=== PATIENT | female | born 1940 | race Caucasian/White ===

== ENCOUNTER → 2016-05-05 | Outpatient (CLI) | payer MEDICARE ==
[~2016-05-05] MED LIST: ASPIRIN CHEWABL81 MG PO; CALCIUM 600 MG1 EACH PO; GLUCOTROL5 MG PO; KLONOPIN TAB 00.5 MG PO; LEVEMIR100 UNIT/1 SQ; LISINOPRIL20 MG PO; METRONIDAZOLE500 MG PO; NEOMYCIN SULFA500 MG PO; NORCO 5-325 TA1 EACH PO
== END ==
LOC: CT 08:30
DX: C20 Malignant neoplasm of rectum (principal); K80.20 Calculus of gallbladder without cholecystitis without obstruction
CPT/HCPCS: 72197; 74160; A9577; J7050; Q9962

== ENCOUNTER → 2016-06-09 | Day surgery (SDC) | payer MEDICARE, OTHER | END | disposition home or self-care (01) | LOC: OR 07:30 | PROVIDERS: Surgery | PROC: 3E0H8GC Introduction of Other Therapeutic Substance into Lower GI, Via Natural or Artificial Opening Endoscopic (ICD-10-PCS; principal; 2016-06-09 07:30) | DX: C20 Malignant neoplasm of rectum (principal); E11.9 Type 2 diabetes mellitus without complications; I10 Essential (primary) hypertension; E78.00 Pure hypercholesterolemia, unspecified; Z90.710 Acquired absence of both cervix and uterus; Z88.0 Allergy status to penicillin; Z79.82 Long term (current) use of aspirin; Z79.899 Other long term (current) drug therapy | CPT/HCPCS: 82962; J7030 ==

== ENCOUNTER 2016-06-10 07:37 | Inpatient (IN) | payer MEDICARE ==
[~2016-06-10] VITALS: Ht 167.6 cm; Wt 64.4 kg
[~2016-06-10 07:37] MED LIST changes: -NORCO 5-325 TA1 EACH PO
[2016-06-10 10:15] LABS: HEMOGLOBIN 12.3 gm/dl (12.3-15.3); WHITE BLOOD COUNT 6.6 K/UL (4.5-11.0)
[2016-06-10 10:28] LABS: BUN/CREATININE RATIO 12 (0-10)
[2016-06-11 06:58] LABS: HEMOGLOBIN 11.9 gm/dl (12.3-15.3); RED BLOOD COUNT 3.91 M/UL (4.00-5.10); WHITE BLOOD COUNT 12.4 K/UL (4.5-11.0)
[2016-06-11 07:25] LABS: BUN/CREATININE RATIO 8 (0-10)
[2016-06-11 20:13] LABS: HEMOGLOBIN 11.4 gm/dl (12.3-15.3); RED BLOOD COUNT 3.71 M/UL (4.00-5.10); WHITE BLOOD COUNT 12.9 K/UL (4.5-11.0)
[2016-06-12 06:04] LABS: HEMOGLOBIN 11.3 gm/dl (12.3-15.3); RED BLOOD COUNT 3.68 M/UL (4.00-5.10); WHITE BLOOD COUNT 10.2 K/UL (4.5-11.0)
[2016-06-13 06:54] LABS: HEMOGLOBIN 10.9 gm/dl (12.3-15.3); RED BLOOD COUNT 3.6 M/UL (4.00-5.10)
[2016-06-13 06:56] LABS: WHITE BLOOD COUNT 7.4 K/UL (4.5-11.0)
[2016-06-13 07:14] LABS: BUN/CREATININE RATIO 8 (0-10)
[2016-06-14 06:47] LABS: BUN/CREATININE RATIO 6 (0-10)
[2016-06-16] MEDS ORDERED: NORCO 5-325 TA1 EACH PO (12:47)
[2016-06-16] MEDS ORDERED: LEVEMIR100 UNIT/1 SQ (13:27)
== END 2016-06-16 15:36 | disposition home or self-care (01) | DRG 330 ==
LOC: OR 07:37 → M/S 18:53
PROVIDERS: ADMIT Surgery
PROC: 0DBP0ZZ Excision of Rectum, Open Approach (ICD-10-PCS; principal; 2016-06-10 08:45)
PROC: 0D1M0Z4 Bypass Descending Colon to Cutaneous, Open Approach (ICD-10-PCS; principal; 2016-06-10 08:45)
PROC: 0DTN0ZZ Resection of Sigmoid Colon, Open Approach (ICD-10-PCS; principal; 2016-06-10 08:45)
DX: C20 Malignant neoplasm of rectum (principal); Q43.8 Other specified congenital malformations of intestine; K91.840 Postprocedural hemorrhage of a digestive system organ or structure following a digestive system procedure; C77.5 Secondary and unspecified malignant neoplasm of intrapelvic lymph nodes; F41.9 Anxiety disorder, unspecified; E78.00 Pure hypercholesterolemia, unspecified; E11.9 Type 2 diabetes mellitus without complications; I10 Essential (primary) hypertension; K57.30 Diverticulosis of large intestine without perforation or abscess without bleeding; M19.90 Unspecified osteoarthritis, unspecified site; Z79.82 Long term (current) use of aspirin; Z79.84 Long term (current) use of oral hypoglycemic drugs; Z79.4 Long term (current) use of insulin; Z79.899 Other long term (current) drug therapy; Z85.3 Personal history of malignant neoplasm of breast; Z85.038 Personal history of other malignant neoplasm of large intestine; H91.90 Unspecified hearing loss, unspecified ear; H54.7 Unspecified visual loss; H93.19 Tinnitus, unspecified ear; Z86.010 Personal history of colon polyps; Z80.0 Family history of malignant neoplasm of digestive organs; Z88.0 Allergy status to penicillin; Y83.8 Other surgical procedures as the cause of abnormal reaction of the patient, or of later complication, without mention of misadventure at the time of the procedure; R32 Unspecified urinary incontinence
CPT/HCPCS: 36415; 80048; 82962; 84132; 85025; 85027; 86850; 86900; 86901; 93005; 94640; J0360; J1100; J1650; J1956; J2250; J2405; J2710; J2795; J3010; J7030; J7042; J7120